=== PATIENT | male | born 1970 ===

== ENCOUNTER 2017-05-26 08:21 | Day surgery (SDC) | payer MEDICAID ==
[2017-05-26] MEDS ORDERED: ceFAZolin 2 GM/SWFI 2 GM/20 ML SYR IVP ONE (08:42)
[2017-05-26] MEDS ORDERED: LR 1,000 ML IV ONE (09:01)
[2017-05-26] MEDS ORDERED: MIDAZOLAM 2 MG/2 ML VIAL IVP ONE (10:25)
--- NOTE | 2017-05-26 10:25 | PDANEPAE ---
ANE History of Present Illness hemorrhoidectomy, EUA ANE Past Medical History - Cardiovascular History Hx Hypertension: No Hx Arrhythmias: No Hx Chest Pain: No Hx Coronary Artery / Peripheral Vascular Disease: No Hx CHF / Valvular Disease: No Hx Palpitations: No - Pulmonary History Hx COPD: No Hx Asthma/Reactive Airway Disease: No Hx Recent Upper Respiratory Infection: No Hx Oxygen in Use at Home: No Hx Sleep Apnea: No Sleep Apnea Screening Result - Last Documented: Negative - Neurologic History Hx Cerebrovascular Accident: No Hx Seizures: No Hx Dementia: No - Endocrine History Hx Diabetes: No - Renal History Hx Renal Disorders: No - Liver History Hx Hepatic Disorders: No - Neurological & Psychiatric Hx Hx Neurological and Psychiatric Disorders: No - Cancer History Hx Cancer: No - Congenital Disorder History Hx Congenital Disorders: Yes Congenital History Comment: PERITONITIS - GI History Hx Gastrointestinal Disorders: Yes Gastrointestinal History Comment: LOTS OF FOODS CAUSE GI ISSUES - Chronic Pain History Chronic Pain: No - Surgical History Prior Surgeries: HEMORRHOID BANDING 03/2017. REMVL BB FROM LT HAND 10/2016. LAPARATOMY SEWED UP CECUM 1979. REMVL MOLE FROM BACK ANE Review of Systems Review of systems is: negative Review of Systems: - Exercise capacity METS (RN): 4 METS ANE Patient History - Allergies Allergies/Adverse Reactions: ciprofloxacin [From Cipro] Allergy (Verified 05/24/17 11:05) HEADACHES egg [eggs] Allergy (Verified 05/24/17 11:06) Fish Containing Products [fish] Allergy (Verified 05/24/17 11:06) latex Allergy (Verified 05/24/17 11:05) Rash Milk Containing Products [dairy] Allergy (Verified 05/24/17 11:06) MEAT Allergy (Uncoded 05/24/17 11:06) - Home Medications Home medications: home medication list seen and reviewed Home Medications: Herbal Drugs DAILY 05/24/17 [Last Taken 05/25/17] - NPO status NPO Status: no food or drink >8 hours NPO Since - Liquids (Date): 05/25/17 NPO Since - Liquids (Time): 22:00 NPO Since - Solids (Date): 05/25/17 NPO Since - Solids (Time): 12:00 - Anes Hx Anes Hx: no prior problems - Smoking Hx Smoking Status: Never smoked - Family Anes Hx Family Anes Hx: none ANE Labs/Vital Signs - Vital Signs Blood Pressure: 146/90 Heart Rate: 64 Respiratory Rate: 13 O2 Sat (%): 95 Height: 182.88 cm Weight: 96.615 kg ANE Physical Exam - Airway Neck exam: FROM Mallampati Score: Class 1 Mouth exam: normal dental/mouth exam - Pulmonary Pulmonary: no respiratory distress - Cardiovascular Cardiovascular: regular rate and rhythym - ASA Status ASA Status: II ANE Anesthesia Plan Anesthesia Plan: GA w LMA
--- NOTE | 2017-05-26 11:04 | PDHPUP ---
History & Physical Update H&P update statement: This history and physical update is based on an assessment of the patient which was completed after admission or registration (within 24 hours), but prior to the surgery/procedure. H&P update: H&P reviewed & patient examined, no change in patient's condition since H&P completed
[2017-05-26] MEDS ORDERED: BUPIVACAINE 0.25% 30 ML SDV ONE ×2 (11:16→11:54)
[2017-05-26] MEDS ORDERED: LIDOCAINE 2% JELLY 20 ML (UROJECT) ONE (11:16)
[2017-05-26] MEDS ORDERED: fentaNYL 100 MCG/2 ML INJ ONE ×2 (11:20→11:54)
[2017-05-26] MEDS ORDERED: ONDANSETRON 4 MG/2 ML VIAL ONE ×3 (11:20→13:27)
[2017-05-26] MEDS ORDERED: DEXAMETHASONE 4 MG/ML VIAL ONE (11:20)
[2017-05-26] MEDS ORDERED: PROPOFOL 200 MG/20 ML VIAL ONE (11:20)
[2017-05-26] MEDS ORDERED: LIDOCAINE 2% 100 MG/5 ML SYR ONE (11:20)
[2017-05-26] MEDS ORDERED: fentaNYL 100 MCG/2 ML INJ IVP PRN (12:08)
[2017-05-26] MEDS ORDERED: PROMETHAZINE HCL 25 MG/ML INJ IVP PRN (12:08)
[2017-05-26] MEDS ORDERED: NALOXONE HCL 0.4 MG/ML INJ IVP PRN (12:08)
[2017-05-26] MEDS ORDERED: HYDROmorphONE/DILAUDID 1 MG/ML INJ IVP PRN (12:08)
[2017-05-26] MEDS ORDERED: ACETAMINOPHEN 500 MG TAB PO PRN (12:08)
[2017-05-26] MEDS ORDERED: ONDANSETRON 4 MG/2 ML VIAL IVP PRN (12:08)
[2017-05-26] MEDS ORDERED: DEXAMETHASONE 4 MG/ML VIAL IVP PRN (12:08)
[2017-05-26] MEDS ORDERED: HYDROCODONE/APAP 5/325 TAB PO PRN (12:08)
[2017-05-26] MEDS ORDERED: OXYCODONE/APAP 5/325 TAB PO PRN (12:08)
[2017-05-26] MEDS ORDERED: MEPERIDINE 25 MG/ML SYR IVP PRN (12:08)
--- NOTE | 2017-05-26 12:12 | POSTANESTH ---
Post Anesthetic Evaluation Cardiovascular Status: Normal, Stable, Similar to Pre-Op Cond Respiratory Status: Normal, Stable, Similar to Pre-op Cond. Level of Consciousness/Mental Status: Can Participate in Eval, Mildly Sleepy, Arousable Pain Control: Adequate, Prn Tx Ordered Nausea/Vomiting Control: Adequate, Prn Tx Ordered Complications Possibly Related to Anesthesia: None Noted
[2017-05-26] MEDS ORDERED: KETOROLAC 30 MG/1 ML SDV ONE (12:22)
[2017-05-26] MEDS ORDERED: SUGAMMADEX SODIUM 200 MG/2 ML VIAL IVP ONE (12:26)
--- NOTE | 2017-05-26 12:44 | POSTOPPROG ---
Post Op Note Date of Operation: 05/26/17 Surgeon: Norman Babin Anesthesiologist: Igor Anesthesia: GET(General Endotracheal) Pre-op Diagnosis: Symptomatic int/ext hemorrhoids Post-op Diagnosis: same Procedure: Hemorrhoidectomy x2 columns Findings: 2 large, inflamed columns completely excised Inf/Abcess present in the surg proc area at time of surgery?: No EBL: Minimal Specimen(s): hemorrhoids
[2017-05-26 13:19] VITALS: BP 122/80; PULSE 70; RESP 16; TEMP 97.9
--- NOTE | 2017-05-26 13:41 | GOP ---
[f rep st] OPERATIVE REPORT DATE OF OPERATION: 05/26/2017 SURGEON: Norman Babin MD PBX TECHNICIAN: None. ANESTHESIA: General endotracheal. ANESTHESIOLOGIST: Dr. Agee. PREOPERATIVE DIAGNOSIS: Symptomatic internal and external hemorrhoids. POSTOPERATIVE DIAGNOSIS: Symptomatic internal and external hemorrhoids. PROCEDURE PERFORMED: Hemorrhoidectomy x2. FINDINGS: 2 large columns, one in the left lateral, one in the right anterior. Successfully removed. Anoderm successfully reapproximated with a running 3-0 Vicryl stitch. SPECIMENS: Hemorrhoids. ESTIMATED BLOOD LOSS: 20 mL. DESCRIPTION OF PROCEDURE: The patient was greeted in the preoperative suite. Once again, risks, benefits, and alternatives were discussed. Consent was signed. He was then brought back to the operative suite, placed on the OR table in supine position. After all anesthesia machines, including SCDs, were on and functioning, [employer] time-out was performed. After successful induction of general anesthesia, the patient was placed in a prone position with all pressure points appropriately padded. His perianal area was appropriately prepped and draped. I began the procedure by performing a digital rectal exam. The Fansler retractor was then appropriately placed and well lubricated. I identified 1 column on the patient' s left side at the superior most aspect. I placed a stay stitch of an interrupted 3-0 Vicryl stitch. I then excised the entire hemorrhoidal column including the internal and external using a #10 blade and finished it with Metzenbaum scissors. After successfully sharply incised, hemostasis was achieved with gentle pressure and Bovie electrocautery. I then cleared the edges somewhat, freed the remainder of the small hemorrhoidal tissue, and completely sewed the anoderm with a running 3-0 Vicryl stitch. Hemostasis was noted to be good. I then turned my attention toward the right side where he had a right anterior hemorrhoidal column which was inflamed as well. In the same fashion as the contralateral side, I completely excised and closed the area with a running 3-0 Vicryl stitch. Hemostasis was noted to be excellent. I then infiltrated the field with 50 mL of 0.25% Marcaine with epinephrine. After obtaining hemostasis, I inserted a piece of Gelfoam into the patient's rectum, cleansed the area, appropriately dressed him, and flipped him back onto a supine position. Extubated and took him to the PACU in satisfactory condition. DRAINS: None. COUNTS: All counts were reported as correct x2. /[id number]/MODL MTDD
[2017-05-26 14:27] VITALS: O2SAT 92
== END 2017-05-26 14:58 | disposition home or self-care (01) ==
LOC: FSGY 08:21
PROVIDERS: ATTEND Surgery
PROC: 06BY0ZC Excision of Hemorrhoidal Plexus, Open Approach (ICD-10-PCS; principal; 2017-05-26 10:15)
DX: K64.4 Residual hemorrhoidal skin tags (principal); K64.8 Other hemorrhoids
CPT/HCPCS: J0171; J0690; J1100; J1885; J2001; J2250; J2405; J2704; J3010